=== PATIENT | male | born 1950 | race Caucasian/White ===

== ENCOUNTER 2017-06-12 00:35 | Inpatient (IN) | payer MEDICARE, OTHER ==
[~2017-06-12] VITALS: Ht 177.8 cm; Wt 119.4 kg
--- NOTE | ~2017-06-12 | OP ---
PATIENT NAME: JAMISON LOUIS MEDICAL RECORD: [id number] :48 LOCATION:D.M2 D.2119 ADMISSION DATE:06/12/17 SURGEON: ANGELA CUMMINS MD DATE OF OPERATION: 06/13/2017 PROCEDURES: 1. PTCA stent, LAD. 2. Intravascular ultrasound of the LAD. 3. Left heart catheterization. 4. Selective coronary angiography. 5. Left ventriculogram. INDICATION: Angina and coronary artery disease. PROCEDURE IN DETAIL: After informed consent was obtained and after detailed explanation of risks, benefits as well as alternative therapies, the patient elected to proceed with angiogram and angioplasty. The right radial area was prepped and draped in normal sterile fashion. The right radial artery was cannulated via modified Seldinger technique with placement of 6-Occitan sheath. All catheters exchanged through this sheath. FINDINGS: Left ventriculogram performed in standard 30-degree BOOTH view reveals global hypokinesis throughout all segments. Overall ejection fraction in the 30% range. SELECTIVE CORONARY ANGIOGRAPHY: 1. The right coronary is chronically totally occluded, unchanged from previous angiography. Distal right coronary fills via awhed-yx-agfhs and hrxa-rt-hebdf collaterals. 2. Left anterior descending has a 70% stenosis in the proximal vessel confirmed by intravascular ultrasound. 3. Left circumflex has mild irregularities, but no flow-limiting stenosis. PTCA STENT OF THE LEFT ANTERIOR DESCENDING: The stent used is 4.0 x 18 mm Integrity. Result was 0% residual stenosis. OVERALL IMPRESSION: Successful percutaneous transluminal coronary angioplasty stent of the left anterior descending going from 70% initial stenosis to 0% residual. TRANSINT:[id number] Voice Confirmation ID: [id number] DOCUMENT ID: [id number] ANGELA CUMMINS MD at 1546 CC: [id number] DICTATION DATE: 06/13/17 1058 EDUCATIONAL/DEVELOPMENT ASSISTANT: 06/13/17 1118 DIS IN 06/14/17 [id number] [place] [address]
--- NOTE | ~2017-06-12 | HP ---
PATIENT: JAMISON LOUIS MEDICAL RECORD: [id number] ACCOUNT: [id number] LOCATION:[address]19 : 48 ADMISSION DATE: 06/12/17 HISTORY AND PHYSICAL EXAMINATION DIAGNOSES: 1. Non-Q-wave myocardial infarction. 2. Coronary artery disease. 3. Previous percutaneous transluminal coronary angioplasty stent. 4. Ischemic cardiomyopathy. 5. Congestive heart failure, chronic systolic dysfunction. 6. Hypertension. 7. Hyperlipidemia. 8. Atrial fibrillation. HISTORY OF PRESENT ILLNESS: Mr. Louis presents with increased shortness of breath and some chest pressure. His troponin is positive. His EKG is sinus rhythm, but ST-T abnormalities in the lateral leads. REVIEW OF SYSTEMS: The patient reports easy bruising but reports no swollen glands. The patient reports no fever, no night sweats, no significant weight gain, no significant weight loss. No significant exercise tolerance. The patient reports no dry eyes, no irritation, no vision change. Patient reports no difficulty hearing and no ear pain. Patient reports no frequent nose bleeds or nose and sinus problems. Patient reports on arm pain on exertion. No shortness of breath while lying down. No history of heart murmur. Patient reports no cough, no wheezing or coughing up blood. Patient reports no abdominal pain, no vomiting. Normal appetite. No diarrhea and not vomiting blood. No nausea and no constipation. Patient reports no incontinence. No difficulty urinating. No hematuria. No increased frequency. Patient reports no muscle aches. No weakness, no arthralgias, no back pain. No swelling of the extremities. Patient reports no abnormal mole, no jaundice, no rashes. Reports no loss of consciousness. No weakness and no numbness. No seizures, dizziness, or headaches. The patient reports no depression, no sleep disturbance, feeling safe in a relationship and no alcohol abuse. Patient reports on fatigue. Reports no runny nose or sinus pressure. No itching, no hives, and no frequent sneezing. PHYSICAL EXAMINATION: GENERAL APPEARANCE: Well-nourished, well-developed, appears stated age. Level of distress, comfortable. PSYCHIATRIC: Mental status, alert, normal affect. Orientation, oriented to time, place and person. EYES: Lids and conjunctiva, noninjected. No discharge, no pallor. ENT: Lips, teeth, gums, normal dentition. Oropharynx, no cyanosis, no pallor. NECK: Carotid arteries, bilateral normal upstroke, no bruits, no thrills. JUGULAR VEINS: No jugular venous pressure or distention. CERVICAL LYMPH NODES: Nontender, nonenlarged. THYROID: Not enlarged. Nontender. No nodules. LUNGS: Respiratory effort, unlabored. CHEST: Normal curvature. No thoracic deformity. No chest wall tenderness. Percussion, resonant. Auscultation, clear. No wheezes, no rales, no rhonchi. CARDIOVASCULAR: Precordial exam, nondisplaced. No heaves or pericardial thrills. Rate and rhythm, regular. Heart sounds, normal S1, normal S2. No S3, no gallop, no rub. Systolic murmur, not heard. Diastolic murmur, not heard. HISTORY AND PHYSICAL [id number] HERIBERTOJAMISON Freida EXTREMITIES: No cyanosis, no edema. Peripheral pulses, full and equal in all extremities, except as noted. No bruits appreciated. ABDOMEN: Soft, nondistended. Normal aorta. No bruit. Nontender. No masses. Liver, nontender, no hepatomegaly. Spleen, nontender, no splenomegaly. MUSCULOSKELETAL: No joint tenderness. No joint swelling. No erythema. NEUROLOGICAL: Normal gait, normal strength, normal tone. SKIN: Warm and dry. OVERALL IMPRESSION: Congestive heart failure, non-Q-wave myocardial infarction, abnormal ECG. Most likely, he has recurrent hemodynamically significant coronary artery disease. We will continue diuresis today. Plan for cardiac catheterization in the a.m. TRANSINT:[id number] Voice Confirmation ID: [id number] DOCUMENT ID: [id number] ANGELA CUMMINS MD at 1546 CC: [id number] DICTATION DATE: 06/12/17 0943 CROZE CUTTER HELPER: 06/12/17 1031 DIS IN 06/14/17 [facility] [address] [place] [address]
--- NOTE | ~2017-06-12 | DS ---
PATIENT:JAMISON LOUIS :48 MEDICAL RECORD: [id number] DISCHARGE SUMMARY ADMISSION DATE: 06/12/17 DISCHARGE DATE: 06/14/17 DIAGNOSES: 1. Congestive heart failure, chronic systolic dysfunction. 2. Ischemic cardiomyopathy. 3. Angina. 4. Coronary artery disease. 5. Percutaneous transluminal coronary angioplasty stent at this admission. 6. Hypertension. 7. Hyperlipidemia. 8. Paroxysmal atrial fibrillation, controlled, in sinus rhythm, on sotalol. 9. Anemia of chronic disease. 10. Renal insufficiency. HISTORY AND HOSPITAL COURSE: Mr. Louis presents with unstable angina, found to have mild troponin elevation, cardiomyopathy, ejection fraction in the 25% to 30% range. Cardiomyopathy is not new. He was also in congestive heart failure. He received IV diuresis dobutamine therapy. This cleared the congestive heart failure and he was switched back to oral Lasix. He underwent cardiac catheterization revealing significant disease of the LAD, underwent successful PTCA stent of the LAD with a bare-metal stent. Was discharged home with the addition of 30 days of Plavix to his medical regimen. He will follow up with [facility] in 1 month. TRANSINT:[id number] Voice Confirmation ID: [id number] DOCUMENT ID: [id number] ANGELA CUMMINS MD at 1546 CC: [id number] DICTATION DATE: 06/14/17 1031 BILLING AND INSURANCE COORDINATOR: 06/14/17 1352 DIS IN 06/14/17 [address] [place] [address]
--- NOTE | ~2017-06-12 | HEMODYNAMI ---
PATIENT:JAMISON LOUIS MEDICAL RECORD: [id number] : 48 [facility] D[id number] ADMISSION DATE: 06/12/17 Generatedon:06/13/201710:57 Patient name: JAMISON LOUIS Patient #: [id number] SSN: : 1950 Date of study: 06/13/2017 Page: Of Hemodynamic Procedure Report Patient Data Patient Demographics Procedure consent was obtained First Name: JAMISON Gender: Male Last Name: HERIBERTO : 1950 Middle Initial: M Age: 67 year(s) Patient #: [id number] Race: Additional ID: [id number] Contact details Address: [address] [place] [address] ROAD State: [place] City: [place] Zip code: [address] Past Medical History History of disease Date Diagnosis Comments CAD Allergies Allergen Reaction Date Comments Reported Other allergy 06/13/2017 MORPHINE, SIMVASTATIN, GABAPENTIN Admission Admission Data Admission Date: 06/12/2017 Admission Time: 19:24 Room #: D.2119 Lab Results Lab Result Date: 06/13/2017 Lab Result Time: 0:00 Biochemistry Name Units Result Min Max BUN mg/dl 26 --(----)-* 7 18 Creatinine mg/dl 1.2 --(---*)-- 0.6 1.3 CBC Name Units Result Min Max Hemoglobin g/dl 12.1 *-(----)-- 13.5 17.5 Procedure Procedure Types Cath Procedure Diagnostic Procedure LHC LHC w/Coronaries FFR/IVUS Intra-Coronary IVUS Initial PCI Procedure Coronary Stent Coronary Stent Initial Miscellaneous Procedures Moderate Sedation up to 30 minutes Procedure Description Procedure Date Procedure Date: 06/13/2017 Procedure Start Time: 10:34 Procedure End Time: 10:57 Procedure Staff Name Function Aaron Du MD Performing Physician Jericho Combs RT Monitor Radha Wu RT Scrub Magno Recio RN Nurse Lars Mccabe RT Mill Dresser Procedure Data Cath Procedure Fluoroscopy Diagnostic fluoroscopy Total fluoroscopy Time: 4.4 time: 4.4 min min Diagnostic fluoroscopy Total fluoroscopy dose: dose: 1022 mGy 1022 mGy Contrast Material Contrast Material Type Amount (ml) Isovue 300 100 Entry Location Entry Primary Successful Side Size Upsize Upsize Entry Closure Muñoz ccessful Closure Location (Fr) 1 (Fr) 2 (Fr) Remarks Device Remarks Radial Right 6 Fr Mechanical TR BAND artery Short Compression Estimated blood loss: 11 ml Diagnostic catheters Device Type Used For End Catheter Placement DIAGNOSTIC [place] 110cm 5 Procedure Fr catheter ([id number]) DIAGNOSTIC [place] MOD 5Fr Procedure Catheter ([id number]) Procedure Complications No complications Procedure Medications Medication Administration Route Dosage 0.9% NaCl I.V. 100 ml/hr Oxygen NC 2 l/min Heparin Flush Bag added to field 2 bags (1000units/500ml NS) Lidocaine 2% added to field 20 Versed I.V. 1 mg Fentanyl I.V. 50 mcg Radial Cocktail I.A. 1 syringe (Verapomil 2mg/Nitro 400mcg/Heparin 1500units) Versed I.V. 1 mg Fentanyl I.V. 50 mcg Heparin Bolus I.V. 4000 units Integrilin (Bolus I.V. 11.3 ml 2mg/ml) Integrilin (Bolus wasted 8.7 ml 2mg/ml) Plavix P.O. 600 mg Hemodynamics Rest HGB: 12.1 (g/dl) Heart Rate: 71 (bpm) Snapshots Pre Cath Intra NCS Post Cath Vital Signs Time Heart Resp SPO2 etCO2 NIBP Rhythm Pain Sedation Rate (ipm) (%) (mmHg) (mmHg) Status Level (bpm) 10:21:01 73 21 92 0 115/62(77) NSR 0 (11) 10(A) , No pain 10:25:48 68 20 91 0 102/57(79) NSR 0 (11) 10(A) , No pain 10:30:37 62 21 92 33.9 104/55(90) NSR 0 (11) 10(A) , No pain 10:35:26 66 13 93 26.4 107/51(67) NSR 0 (11) 10(A) , No pain 10:40:08 66 20 95 32.4 99/57(75) NSR 0 (11) 10(A) , No pain 10:44:51 69 18 91 36.2 111/63(79) NSR 0 (11) 10(A) , No pain 10:49:38 66 18 95 36.9 101/56(81) NSR 0 (11) 10(A) , No pain 10:54:22 70 22 94 0 103/63(90) NSR 0 (11) 10(A) , No pain Medications Time Medication Route Dose Verified Delivered Reason Note s Effectiveness by by 10:26:27 0.9% NaCl I.V. 100 Magno Magno Per physician ml/hr Hemal Recio RN RN 10:26:39 Oxygen NC 2 l/min Magno Magno Per physician Hemal Recio RN RN 10:26:51 Heparin Flush added 2 bags Magno Magno used for Bag to Hemal Recio procedure (1000units/500ml RN RN NS) 10:27:07 Lidocaine 2% added 20ml Magno Magno for local to vial Hemal Recio anesthetic RN RN 10:27:18 Versed I.V. 1 mg Magno Magno for sedation Hemal Recio RN RN 10:27:27 Fentanyl I.V. 50 mcg Magno Magno for sedation Hemal Recio RN RN 10:38:10 Radial Cocktail I.A. 1 Magno Aaron for (Verapomil syringe Hemal Du MD vasodilation 2mg/Nitro RN 400mcg/Heparin 1500units) 10:38:22 Versed I.V. 1 mg Magno Magno for sedation Hemal Recio RN RN 10:38:33 Fentanyl I.V. 50 mcg Magno Magno for sedation Hemal Recio RN RN 10:44:38 Heparin Bolus I.V. 4000 Magno Magno for units Hemal Recio anticoagulation RN RN 10:49:24 Integrilin I.V. 11.3 ml Magno Magno for (Bolus 2mg/ml) Hemal Recio antiplatelet RN RN therapy 10:49:41 Integrilin wasted 8.7ml Magno Magno to sharp's (Bolus 2mg/ml) Hemal Recio RN RN 10:52:34 Plavix P.O. 600 mg Magno Magno for Hemal Recio antiplatelet RN RN therapy Procedure Log Time Note 10:13:05 Lars MOONEY(R) sent for patient. Start room use. 10:13:06 Time tracking: Regular hours 10:13:10 Plan of Care:Hemodynamics will remain stable., Cardiac rhythm will remain stable., Comfort level will be maintained., Respiratory function will remain adequate., Patient/ family verbilizes understanding of procedure., Procedure tolerated without complication., Recovers from procedure without complications.. 10:14:17 Patient received from PCU to CCL 1 Alert and oriented. Tansferred to table in Supine position. 10:14:18 Warm blankets applied, and kinza hugger turned on for patient comfort. 10:14:19 Correct patient and procedure confirmed by team. 10:14:20 Signed procedure consent form obtained from patient. 10:14:21 ECG and BP/O2 sat monitors applied to patient. 10:14:22 Full Disclosure recording started 10:20:00 Vital chart was started 10:20:12 H&P Date Dictated: 06/12/2017 Within 30 days and on chart.. 10:20:13 Pre-procedure instructions explained to patient. 10:20:14 Pre-op teaching completed and patient verbalized understanding. 10:20:17 Family in patients room. 10:20:19 Patient NPO since Midnight. 10:20:57 Patient allergic to Other allergyMORPHINE, SIMVASTATIN, GABAPENTIN 10:21:01 Is the patient allergic to Iodine/contrast media? No. 10:21:03 Is patient on blood thinner?No 10:21:05 Patient diabetic? No. 10:21:07 Previous problem with sedation/anesthesia? No ? 10:21:09 Snore? Yes 10:21:10 Sleep apnea? No 10:21:12 Deviated septum? No 10:21:12 Opens mouth fully? Yes 10:21:13 Sticks out tongue? Yes 10:21:15 Airway obstruction? No ? 10:21:18 Dentures? No ? 10:21:21 Modified Nato's test Ulnar < 7 seconds 10:21:25 Patient pain scale 0/10 ?. 10:21:33 IV patent on arrival in left hand with 0.9% NaCl at [facility]. 10:22:52 Lab Result : Creatinine 1.2 mg/dl 10:22:52 Lab Result : BUN 26 mg/dl 10:22:52 Lab Result : Hemoglobin 12.1 g/dl 10:23:04 Rhythm: sinus rhythm 10:23:21 Baseline sample Acquired. 10:23:31 Lab results completed and on chart. 10:23:34 Right Radial & Right Groin area was prepped with chlora-prep and draped in sterile fashion 10:23:36 Alarms reviewed by R. N. 10:23:37 Sharps counted by scrub and verified by R.N. 10::42 --------ALL STOP TIME OUT------ 10::42 Final Timeout: patient, procedure, and site verified with staff and physician. All members of the team are in agreement. 10:23:44 Right Radial & Right Groin site verified by team. 10:23:47 Physical assessment completed. ASA score P 2 - A patient with mild systemic disease as per Aaron Du MD. 10:23:52 Sedation plan: IV Moderate Sedation Medication:Versed, Fentanyl 10:25:46 Use device set Radial Dx 10:25:48 ACIST Syringe (86319) opened to sterile field. 10:25:50 ACIST Hand Control (91536) opened to sterile field. 10:25:51 ACIST Manifold (04873) opened to sterile field. 10:25:51 Tegaderm 4 x 4 (1626W) opened to sterile field. 10:25:55 Bag Decanter (2002S) opened to sterile field. 10:25:57 MBrace Wrist Support ([id number]) opened to sterile field. 10:25:58 Medline Cath Pack ([id number]) opened to sterile field. 10:25:59 SHEATH 6FR Slender ([id number]) opened to sterile field. 10:26:01 DIAGNOSTIC WIRE .035 260cm J wire (618774) opened to sterile field. 10:26:27 0.9% NaCl 100 ml/hr I.V. was administered by Magno Recio RN; Per physician; 10:26:39 Oxygen 2 l/min NC was administered by Magno Recio RN; Per physician; 10:26:51 Heparin Flush Bag (1000units/500ml NS) 2 bags added to field was administered by Magno Recio RN; used for procedure; 10:27:07 Lidocaine 2% 20ml vial added to field was administered by Magno Recio RN; for local anesthetic; 10:27:18 Versed 1 mg I.V. was administered by Magno Recio RN; for sedation; 10:27:27 Fentanyl 50 mcg I.V. was administered by Magno Recio RN; for sedation; 10:33:19 Zero performed for pressure channel P1 10:34:44 Procedure started. 10:34:59 Local anesthetic to right radial artery with Lidocaine 2% by Aaron Du MD.INITIAL ACCESS ONLY 10:37:18 A 6 Fr Short sheath was inserted into the Right Radial artery 10:37:48 A DIAGNOSTIC [place] 110cm 5 Fr catheter ([id number]) was advanced over the wire and used for Procedure. 10:38:10 Radial Cocktail (Verapomil 2mg/Nitro 400mcg/Heparin 1500units) 1 syringe I.A. was administered by Aaron Du MD; for vasodilation; 10:38:22 Versed 1 mg I.V. was administered by Magno Recio RN; for sedation; 10:38:25 LV hemodynamics recorded. 10:38:28 Injector settings: Ml/sec: 7, Volume: 15, 10:38:30 LV gram done using BOOTH 10:38:33 Fentanyl 50 mcg I.V. was administered by Magno Recio RN; for sedation; 10:38:46 EF : 30 % 10:39:30 Catheter removed. 10:39:45 UNABLE TO ENGAGE LEFT OR RIGHT 10:41:10 GUIDE 6FR EBU 4.0 guide catheter ([id number]) opened to sterile field. 10:41:22 6 Fr EBU 4 guide catheter was inserted over the wire 10:41:35 LCA angiography performed. 10:42:16 INFLATOR Merit BasixCompak (DS6921) opened to sterile field. 10:42:35 CHOICE PT Extra Support 182cm wire ([id number]) opened to sterile field. 10:42:58 Ren[place] Wainwright Eagleye IVUS Catheter (11928W) opened to sterile field. 10:43:24 CHOICE ES wire advanced. 10:43:55 Wire advanced across lesion. 10:44:25 IVUS catheter advanced over wire. 10:44:38 Heparin Bolus 4000 units I.V. was administered by Magno Recio RN; for anticoagulation; 10:44:55 IVUS pass to LAD lesion performed. 10:45:56 IVUS catheter removed over wire. 10:48:42 Inflation Number: 1 A INTEGRITY 4.0 x 18 stent ([id number]) was prepped and advanced across the Mid LAD. The stent was deployed at 11 CAM for 0:10 (min:sec). 10:49:08 Stent catheter was removed intact over wire. 10:49:17 Wire removed. 10:49:19 Guide catheter removed. 10:49:24 Integrilin (Bolus 2mg/ml) 11.3 ml I.V. was administered by Magno Recio RN; for antiplatelet therapy; 10:49:29 A DIAGNOSTIC [place] MOD 5Fr Catheter ([id number]) was advanced over the wire and used for Procedure. 10:49:41 Integrilin (Bolus 2mg/ml) 8.7ml wasted was administered by Magno Recio RN; to sharp's; 10:50:45 RCA angiography performed. 10:51:03 Catheter removed. 10:51:07 TR BAND Standard (OGF14OND) opened to sterile field. 10:52:11 Sheath removed intact; hemostasis achieved with Mechanical Compression to the Right Radial artery. 10:52:14 Procedure ended.(Physican Out) 10:52:34 Plavix 600 mg P.O. was administered by Magno Recio RN; for antiplatelet therapy; 10:52:40 Fluoroscopy time 04.40 minutes. 10:52:45 Fluoroscopy dose: 1022 mGy 10:52:45 Flurop Dose total: 1022 10:53:30 Contrast amount:Isovue 300 100ml. 10:53:31 Sharps counted by scrub and verified by R.N. 10:53:38 TR band inflated with 10cc of air. 10:54:37 Post-procedure physical assessment completed. ASA score P 2 - A patient with mild systemic disease as per Aaron Du MD. 10:54:40 Post procedure rhythm: unchanged. 10:54:42 Estimated blood loss: 11 ml 10:54:44 Post procedure instruction explained to patient.Patient verbalizes understanding. 10:54:44 Patient needs reinforcement of post procedure teaching. 10:55:04 Procedure type changed to Cath procedure, Diagnostic procedure, LHC, LHC w/Coronaries, FFR/IVUS, Intra-Coronary IVUS Initial, PCI procedure, Coronary Stent, Coronary Stent Initial, Miscellaneous Procedures, Moderate Sedation up to 30 minutes 10:57:15 Procedure and supply charges have been captured, reviewed, submitted and are correct. 10:57:17 Procedure Complication : No complications 10:57:19 Vital chart was stopped 10:57:20 See physician's report for complete and final results. 10:57:23 Report given to PCU. 10:57:27 Patient transfered to PCU with Bed. 10:57:28 Procedure ended. 10:57:28 Full Disclosure recording stopped 10:57:32 End room use (Document Last) Intervention Summary Intervention Notes Time ActionType Lesion and Equipment Action# Pressure Duration Attributes Used 10:48:42 Place stent Mid LAD INTEGRITY 1 11 00:10 4.0 x 18 stent ([id number]) Device Usage Item Name Manufacture Quantity Catalog Number Hospital Part Current Mini mal Lot# / Charge Number Stock Stock Serial# Code ACIST Acist 1 41340 414515 461691 040201 20 Syringe Medical (49413) Systems Inc ACIST Hand Acist 1 18715 997971 635879 669010 5 Control Medical (89675) Systems Inc ACIST Acist 1 05078 476796 524191 427497 5 Manifold Medical (46994) Systems Inc Tegaderm 4 x 3M 1 1626W 357533 474442 922831 5 4 (1626W) Bag Decanter Microtek 1 2002S 895947 17788 342626 5 (2001S) Medical Inc. MBrace Wrist Advanced 1 140-0250-00 801209 61791 835918 5 Support Vascular ([id number]) Dynamics Medline Cath Cardinal 1 [id number] 935425 91225 854513 5 [facility] ([id number]) SHEATH 6FR Terumo 1 [id number] 282212 287450 426604 40 Slender ([id number]) DIAGNOSTIC [facility] [place] 1 845258 733748 738348 012310 30 WIRE .035 260cm J wire (023079) DIAGNOSTIC Terumo 1 40-1399 198527 810979 990318 5 [place] 110cm 5 Fr catheter (651624) GUIDE 6FR Medtronic 1 [id number] 998702 63174 296060 1 EBU 4.0 guide catheter ([id number]) INFLATOR gopogo 1 SG0472 735718 106971 462345 15 GradFly BasixCompak (IZ9388) CHOICE PT [place] 1 [id number] 773157 034487 792757 5 Extra Scientific Support 182cm wire ([id number]) [place] 1 80439L 590476 692199 699629 8 Wainwright Eagleye IVUS Catheter (79289O) INTEGRITY Medtronic 1 [id number] 194052 696983 502472 5 [id number] 4.0 x 18 stent ([id number]) DIAGNOSTIC Cardinal 1 [id number] 830455 999923 737820 15 AR MOD 5Fr Health Catheter (385968X) TR BAND Terumo 1 [id number] 387522 539037 157277 40 Standard ([id number]) Signature Audit [place] Stage Time Signature Unsigned Intra-Procedure 06/13/2017 Radha Wu 10:57:48 AM RT(R) Signatures Monitor : Jericho Combs RT Signature : Date : Time : [id number] [place] [address]
[~2017-06-12 00:35] MED LIST: AMITIZA24 MCG PO; ANUSOL-HC 2.5%30 GM RC; ATROVENT 0.02%2.5 ML UPD; BETAPACE 80 MG80 MG PO; BUSPAR5 MG PO; CARDIZEM CD240 MG PO; COLACE100 MG PO; CYMBALTA30 MG; CYMBALTA30 MG PO; DECADRON4 MG PO; DULCOLAX10 MG/SUPP RC; ELIQUIS5 MG PO; FENOFIBRATE134 MG PO; FLORASTOR250 MG PO; GEMFIBROZIL600 MG PO; K-DUR20 MEQ PO; LASIX80 MG PO; LYRICA75 MG PO; MAG-OX 400 MG400 MG PO; MIRALAX527 GM PO; MOBIC7.5 MG PO; MUCINEX DM ER1 EAC1 PO; OXYCONTIN10 MG PO; PERCOCET 5/3251 TA1 PO; PROTONIX20 MG PO; RESTORIL15 MG PO; SENOKOT-S TABLE1 TAB PO; SINGULAIR10 MG PO; STERAPRED DS 1210 MG PO; TESSALON PERLE100 MG PO; UROXATRAL10 MG PO; ZAROXOLYN2.5 MG PO; ZYLOPRIM300 MG PO
[2017-06-12 01:16] LABS: BASOPHILS 0.2 % (0-2); EOSINOPHILS 2.2 % (0-7); HEMATOCRIT 39.3 % (42.0-54.0); HEMOGLOBIN 12.9 g/dL (13.5-17.5); IMMATURE GRANULOCYTES 0.4 % (0-5); LYMPHOCYTES 23.7 % (15-50); MCH 30.6 pg (26.0-34.0); MCHC 32.8 g/dL (31.0-37.0); MCV 93.1 fL (80.0-100.0); MEAN PLATELET VOLUME 12.6 fL (7.4-10.4); MONOCYTES 21.2 % (2-11); NEUTROPHILS 52.3 % (40-80); PLATELET COUNT 162 10x3/uL (130-400); RBC 4.22 10x6/uL (4.20-6.10); RDW 16.1 % (11.5-14.5)
[2017-06-12 01:30] LABS: ALBUMIN 3.1 g/dL (3.4-5.0); ANION GAP 13.6 mmol/L (8-16); BILIRUBIN - TOTAL 0.8 mg/dL (0.2-1.3); CALCIUM 9.5 mg/dL (8.5-10.1); CREATININE - SERUM 1.2 mg/dL (0.6-1.3); POTASSIUM - SERUM 5.6 mmol/L (3.5-5.1); PROTEIN - SERUM 6.8 g/dL (6.4-8.2)
[2017-06-12 01:47] LABS: TROPONIN-I 0.294 ng/mL (0.000-0.060)
[2017-06-12] MEDS ORDERED: BAYER CHEWABLE81 MG PO (03:07)
[2017-06-12 03:13] VITALS: BP 146/75; Ht 177.8 cm; Wt 119.4 kg
[2017-06-12 06:51] VITALS: BP 146/75
[2017-06-12 08:00] VITALS: BP 116/57
[2017-06-12 12:00] VITALS: BP 108/54
[2017-06-12 16:00] VITALS: BP 111/59
[2017-06-12 20:00] VITALS: BP 110/55
[2017-06-12] MEDS ORDERED: HYDROCODONE-APA1 TAB PO (21:17)
[2017-06-13] VITALS: BP 101/55
[2017-06-13 04:00] VITALS: BP 115/56
[2017-06-13 04:56] LABS: BASOPHILS 0.3 % (0-2); EOSINOPHILS 2.6 % (0-7); HEMATOCRIT 37.9 % (42.0-54.0); HEMOGLOBIN 12.1 g/dL (13.5-17.5); IMMATURE GRANULOCYTES 0.1 % (0-5); LYMPHOCYTES 31.5 % (15-50); MCH 29.9 pg (26.0-34.0); MCHC 31.9 g/dL (31.0-37.0); MCV 93.6 fL (80.0-100.0); MEAN PLATELET VOLUME 12.4 fL (7.4-10.4); MONOCYTES 20.6 % (2-11); NEUTROPHILS 44.9 % (40-80); PLATELET COUNT 138 10x3/uL (130-400); RBC 4.05 10x6/uL (4.20-6.10); RDW 16.3 % (11.5-14.5); WBC 7.2 10x3/uL (4.8-10.8)
[2017-06-13 05:04] LABS: ANION GAP 11.2 mmol/L (8-16); CALCIUM 9.1 mg/dL (8.5-10.1); CARBON DIOXIDE 28.3 mmol/L (21.0-32.0); CREATININE - SERUM 1.2 mg/dL (0.6-1.3)
[2017-06-13 05:11] LABS: POTASSIUM - SERUM 3.5 mmol/L (3.5-5.1)
[2017-06-13 07:39] VITALS: BP 132/75
[2017-06-13 11:56] VITALS: BP 132/74
[2017-06-13 15:51] VITALS: BP 140/72
[2017-06-13 22:39] VITALS: BP 105/45
[2017-06-14 06:16] VITALS: BP 100/32
[2017-06-14 07:41] VITALS: BP 107/51
[2017-06-14] MEDS ORDERED: PLAVIX75 MG PO (10:43)
[2017-06-14 11:19] VITALS: BP 110/64
[2017-06-14 15:45] VITALS: BP 113/54
== END 2017-06-14 19:26 | disposition home or self-care (01) | DRG 248 ==
LOC: D.ER 00:35 → D.M2 02:21 → OBSVTIME 02:21 → D.M2 19:24 → D.SDCHOLD 06-13 13:42 → D.M2 06-13 15:47
PROVIDERS: Emergency Medicine; Internal Medicine Interventional Cardiology
PROC: B2111ZZ Fluoroscopy of Multiple Coronary Arteries using Low Osmolar Contrast (ICD-10-PCS; 2017-06-13)
PROC: B2151ZZ Fluoroscopy of Left Heart using Low Osmolar Contrast (ICD-10-PCS; 2017-06-13)
PROC: 02703DZ Dilation of Coronary Artery, One Artery with Intraluminal Device, Percutaneous Approach (ICD-10-PCS; principal; 2017-06-13 11:45)
PROC: 4A023N7 Measurement of Cardiac Sampling and Pressure, Left Heart, Percutaneous Approach (ICD-10-PCS; 2017-06-13 11:45)
DX: I21.4 Non-ST elevation (NSTEMI) myocardial infarction (principal); I50.23 Acute on chronic systolic (congestive) heart failure; I25.10 Atherosclerotic heart disease of native coronary artery without angina pectoris; I25.5 Ischemic cardiomyopathy; I11.0 Hypertensive heart disease with heart failure; N28.9 Disorder of kidney and ureter, unspecified; R94.31 Abnormal electrocardiogram [ECG] [EKG]; I48.0 Paroxysmal atrial fibrillation; D64.9 Anemia, unspecified; Z95.5 Presence of coronary angioplasty implant and graft

== ENCOUNTER 2017-06-15 12:24 | Emergency (ER) | payer MEDICARE, OTHER ==
[2017-06-12 03:13] VITALS: BMI 38.2
[~2017-06-15 12:24] MED LIST changes: +BAYER CHEWABLE81 MG PO; +HYDROCODONE-APA1 TAB PO; +PLAVIX75 MG PO
[2017-06-15 13:25] LABS: HEMATOCRIT 38.3 % (42.0-54.0); HEMOGLOBIN 12.4 g/dL (13.5-17.5); MCH 30.1 pg (26.0-34.0); MCHC 32.4 g/dL (31.0-37.0); MEAN PLATELET VOLUME 12.1 fL (7.4-10.4); PLATELET COUNT 146 10x3/uL (130-400); RBC 4.12 10x6/uL (4.20-6.10); WBC 10.3 10x3/uL (4.8-10.8)
[2017-06-15 13:58] LABS: ALBUMIN 3.1 g/dL (3.4-5.0); ALKALINE PHOSPHATASE 102 U/L (46-116); ALT (SGPT) 22 U/L (10-68); BILIRUBIN - TOTAL 1.18 mg/dL (0.2-1.3); CALC OSMOLALITY 279 mosm/kg (275-300); CALCIUM 9.2 mg/dL (8.5-10.1); CARBON DIOXIDE 27.3 mmol/L (21.0-32.0); CHLORIDE - SERUM 104 mmol/L (98-107); CKMB 0.9 U/L (0.0-3.6); CREATININE - SERUM 1.2 mg/dL (0.6-1.3); GLUCOSE 93 mg/dL (74-106); POTASSIUM - SERUM 3.9 mmol/L (3.5-5.1); PRO BNP 4713 pg/mL (0-125); PROTEIN - SERUM 6.7 g/dL (6.4-8.2); SODIUM 138 mmol/L (136-145); UREA NITROGEN 23 mg/dL (7-18); eGFR NON AFRICAN AMERICAN 64 mL/min (90-120)
[2017-06-15 14:02] LABS: TROPONIN-I 0.104 ng/mL (0.000-0.060)
[2017-06-15 14:59] LABS: ANISOCYTOSIS OCC; EOSINOPHILS 2 % (0-7); HYPOCHROMASIA OCC; LYMPHOCYTES 11 % (15-50); MONOCYTES 20 % (2-11); NEUTROPHILS 65 % (40-80); PLATELET ESTIMATE NORMAL; ROULEAUX OCC
== END 2017-06-15 16:52 | disposition home or self-care (01) ==
LOC: D.ER 12:24
PROVIDERS: Emergency Medicine
DX: I50.9 Heart failure, unspecified (principal); J81.1 Chronic pulmonary edema; I44.7 Left bundle-branch block, unspecified

== ENCOUNTER 2017-08-06 20:25 | Emergency (ER) | payer MEDICARE, OTHER ==
[2017-06-12 03:13] VITALS: BMI 38.2
[2017-08-06 20:48] LABS: BASOPHILS 0.4 % (0-2); EOSINOPHILS 1.1 % (0-7); HEMATOCRIT 41.2 % (42.0-54.0); HEMOGLOBIN 13.2 g/dL (13.5-17.5); IMMATURE GRANULOCYTES 0.3 % (0-5); MCH 29.9 pg (26.0-34.0); MCV 93.2 fL (80.0-100.0); MEAN PLATELET VOLUME 11.8 fL (7.4-10.4); NEUTROPHILS 59.2 % (40-80); PLATELET COUNT 149 10x3/uL (130-400); RBC 4.42 10x6/uL (4.20-6.10); RDW 16.8 % (11.5-14.5)
[2017-08-06 21:03] LABS: ALBUMIN 3.4 g/dL (3.4-5.0); ALKALINE PHOSPHATASE 73 U/L (46-116); ALT (SGPT) 24 U/L (10-68); BILIRUBIN - TOTAL 1.08 mg/dL (0.2-1.3); CALC OSMOLALITY 281 mosm/kg (275-300); CALCIUM 9.4 mg/dL (8.5-10.1); CARBON DIOXIDE 27.2 mmol/L (21.0-32.0); CHLORIDE - SERUM 102 mmol/L (98-107); CREATININE - SERUM 1.8 mg/dL (0.6-1.3); POTASSIUM - SERUM 4.5 mmol/L (3.5-5.1); PROTEIN - SERUM 6.7 g/dL (6.4-8.2); SODIUM 135 mmol/L (136-145); UREA NITROGEN 38 mg/dL (7-18); eGFR NON AFRICAN AMERICAN 40 mL/min (90-120)
[2017-08-06 21:06] LABS: GLUCOSE 156 mg/dL (74-106)
[2017-08-06 21:17] LABS: CKMB 1.9 U/L (0.0-3.6); CREATINE KINASE 30 UL (21-232)
[2017-08-06 21:19] LABS: TROPONIN-I 0.221 ng/mL (0.000-0.060)
== END 2017-08-06 23:22 | disposition home or self-care (01) ==
LOC: D.ER 20:25
PROVIDERS: Family Medicine
DX: I48.91 Unspecified atrial fibrillation (principal)

== ENCOUNTER → 2017-09-08 08:35 | Outpatient (CLI) | payer MEDICARE, OTHER ==
[2017-06-12 03:13] VITALS: BMI 38.2
== END | disposition home or self-care (01) ==
LOC: D.US 08:00
DX: R94.5 Abnormal results of liver function studies (principal)